=== PATIENT | male | born 1960 | race Caucasian/White ===

== ENCOUNTER 2016-03-30 06:41 | Day surgery (SDC) | payer BC, OTHER ==
[~2016-03-30] VITALS: Ht 185.4 cm; Wt 140.6 kg
[~2016-03-30 06:41] MED LIST: ABILIFY10 MG PO; ABILIFY20 MG PO; BACTRIM; CELEXA40 MG PO; CITALOPRAM HBR40 M1 PO; COLACE100 MG PO; Chronulac,Cephulac,E PO; DETROL LA2 MG PO; DIFLUCAN100 MG PO; FERROUS SULFAT325 MG PO; FOLIC ACID1 MG PO; FUROSEMIDE40 MG PO; HALOPERIDOL2 MG PO; LASIX80 MG PO; LORCET 5-325 M1 EACH PO; MAG-OX400 M1 PO; MULTIVITAMIN1 EAC2 PO; NEURONTIN300 MG PO; OMEPRAZOLE MAGN20 MG PO; OXYCODONE5 MG PO; PREDNISONE5 M2 PO; PROGRAF1 MG PO; PROGRAF5 MG PO; PROPRANOLOL HCL20 MG PO; PROTONIX40 MG PO; SENNA8.6 M1 PO; SINEMET 25-1001 EACH PO; SPIRONOLACTONE100 MG PO; SYNTHROID100 MCG PO; VALCYTE450 MG PO; ZESTRIL10 MG PO; [UNRECOGNIZED DRUG - OTHER] PO
== END 2016-03-30 09:03 | disposition home or self-care (01) ==
LOC: PAIN 06:41 → SDC 07:30 → PAIN 07:30
PROC: 015B3ZZ Destruction of Lumbar Nerve, Percutaneous Approach (ICD-10-PCS; principal; 2016-03-30)
DX: M47.816 Spondylosis without myelopathy or radiculopathy, lumbar region (principal); M54.5 Low back pain; F41.9 Anxiety disorder, unspecified; M48.06 Spinal stenosis, lumbar region; Z94.4 Liver transplant status; Z92.25 Personal history of immunosuppression therapy; G20 Parkinson's disease; F31.9 Bipolar disorder, unspecified; G47.00 Insomnia, unspecified; N39.41 Urge incontinence; I10 Essential (primary) hypertension; E66.01 Morbid (severe) obesity due to excess calories; Z68.41 Body mass index [BMI] 40.0-44.9, adult; K21.9 Gastro-esophageal reflux disease without esophagitis; E78.2 Mixed hyperlipidemia; G47.33 Obstructive sleep apnea (adult) (pediatric); E03.9 Hypothyroidism, unspecified; F10.21 Alcohol dependence, in remission
CPT/HCPCS: J1030; J2250; J3010; S0020

== ENCOUNTER 2016-04-06 07:52 | Day surgery (SDC) | payer BC, OTHER ==
[~2016-04-06] VITALS: Ht 185.4 cm; Wt 140.6 kg
== END 2016-04-06 09:47 | disposition home or self-care (01) ==
LOC: PAIN 07:52 → SDC 08:30 → PAIN 08:30
PROC: 015B3ZZ Destruction of Lumbar Nerve, Percutaneous Approach (ICD-10-PCS; principal; 2016-04-06)
DX: M47.896 Other spondylosis, lumbar region (principal); M48.06 Spinal stenosis, lumbar region; I10 Essential (primary) hypertension; F41.1 Generalized anxiety disorder; M10.9 Gout, unspecified; G47.33 Obstructive sleep apnea (adult) (pediatric); Z94.4 Liver transplant status; G20 Parkinson's disease; E03.9 Hypothyroidism, unspecified
CPT/HCPCS: J1030; J2250; J3010; S0020

== ENCOUNTER 2016-12-14 08:49 | Day surgery (SDC) | payer BC, OTHER ==
[~2016-12-14] VITALS: Ht 177.8 cm; Wt 135.1 kg
[~2016-12-14 08:49] MED LIST changes: +OXYCODONE HCL10 MG PO
== END 2016-12-14 10:15 | disposition home or self-care (01) ==
LOC: PAIN 08:49 → SDC 09:45 → PAIN 09:45
PROC: 3E0S33Z Introduction of Anti-inflammatory into Epidural Space, Percutaneous Approach (ICD-10-PCS; principal; 2016-12-14)
DX: M47.26 Other spondylosis with radiculopathy, lumbar region (principal); M48.061 Spinal stenosis, lumbar region without neurogenic claudication; M51.16 Intervertebral disc disorders with radiculopathy, lumbar region; Z94.4 Liver transplant status; E66.01 Morbid (severe) obesity due to excess calories; Z68.41 Body mass index [BMI] 40.0-44.9, adult; I10 Essential (primary) hypertension; E78.1 Pure hyperglyceridemia; E78.2 Mixed hyperlipidemia; K21.9 Gastro-esophageal reflux disease without esophagitis; G47.33 Obstructive sleep apnea (adult) (pediatric); E03.9 Hypothyroidism, unspecified
CPT/HCPCS: 93005; J1030; J1100; J2250; J3010

== ENCOUNTER 2017-01-18 13:26 | Day surgery (SDC) | payer BC, OTHER ==
[~2017-01-18] VITALS: Ht 177.8 cm; Wt 129.3 kg
[~2017-01-18 13:26] MED LIST changes: -ABILIFY10 MG PO; +ASCORBIC ACID500 M3 PO; +COLCRYS0.6 MG PO; +LIPITOR80 MG PO; +SYMMETREL100 M1 PO; +VIAGRA50 MG PO; +ZYLOPRIM300 MG PO
== END 2017-01-18 15:20 | disposition home or self-care (01) ==
LOC: PAIN 13:26 → SDC 14:00 → PAIN 15:20
DX: M47.26 Other spondylosis with radiculopathy, lumbar region (principal); M54.5 Low back pain; G89.29 Other chronic pain; M48.061 Spinal stenosis, lumbar region without neurogenic claudication; M79.1 Myalgia; E66.01 Morbid (severe) obesity due to excess calories; Z68.41 Body mass index [BMI] 40.0-44.9, adult; I10 Essential (primary) hypertension; E78.1 Pure hyperglyceridemia; K21.9 Gastro-esophageal reflux disease without esophagitis; J45.909 Unspecified asthma, uncomplicated; G47.33 Obstructive sleep apnea (adult) (pediatric); G20 Parkinson's disease; E03.9 Hypothyroidism, unspecified; Z94.4 Liver transplant status; F10.21 Alcohol dependence, in remission; Z79.891 Long term (current) use of opiate analgesic
CPT/HCPCS: J1100; J2250; J3010

== ENCOUNTER 2017-03-01 13:25 | Day surgery (SDC) | payer BC, OTHER ==
[~2017-03-01] VITALS: Ht 177.8 cm; Wt 129.3 kg
== END 2017-03-01 14:58 | disposition home or self-care (01) ==
LOC: PAIN 13:25 → SDC 14:15 → PAIN 14:58
DX: M47.26 Other spondylosis with radiculopathy, lumbar region (principal); M48.061 Spinal stenosis, lumbar region without neurogenic claudication; I10 Essential (primary) hypertension; E66.01 Morbid (severe) obesity due to excess calories; Z68.41 Body mass index [BMI] 40.0-44.9, adult; K21.9 Gastro-esophageal reflux disease without esophagitis; G47.33 Obstructive sleep apnea (adult) (pediatric); G20 Parkinson's disease; E03.9 Hypothyroidism, unspecified; E78.1 Pure hyperglyceridemia; Z79.891 Long term (current) use of opiate analgesic
CPT/HCPCS: J1100; J2250; J3010

== ENCOUNTER 2017-03-14 09:58 | Day surgery (SDC) | payer BC, OTHER ==
[~2017-03-14] VITALS: Ht 177.8 cm; Wt 129.3 kg
[2017-03-14 10:24] VITALS: BP 139/84
[2017-03-14 10:25] VITALS: BP 139/84
[2017-03-14] MEDS ORDERED: MULTI VITAMIN1 EACH PO (10:48)
[2017-03-14 20:00] VITALS: BP 128/60
[2017-03-14 23:50] VITALS: BP 101/59
[2017-03-15 04:00] VITALS: BP 120/88
[2017-03-15 07:53] VITALS: BP 102/56
[2017-03-15 15:44] VITALS: BP 100/58
[2017-03-15] MEDS ORDERED: TIZANIDINE HCL4 MG PO (17:25)
[2017-03-15] MEDS ORDERED: OXYCODONE HCL10 MG PO (17:25)
[2017-03-15] MEDS ORDERED: NEURONTIN300 MG PO (17:25)
== END 2017-03-15 18:41 | disposition home or self-care (01) ==
LOC: SDC 09:58 → ENRESERV 17:59 → 2SOUTH 18:15 → 3EAST 18:15 → ENRESERV 18:44 → 3EAST 19:56
PROVIDERS: Neurological Surgery
PROC: 00QT0ZZ Repair Spinal Meninges, Open Approach (ICD-10-PCS; principal; 2017-03-14)
PROC: 01NB0ZZ Release Lumbar Nerve, Open Approach (ICD-10-PCS; principal; 2017-03-14)
DX: M48.062 Spinal stenosis, lumbar region with neurogenic claudication (principal); G97.41 Accidental puncture or laceration of dura during a procedure; G89.29 Other chronic pain; G20 Parkinson's disease; Z94.4 Liver transplant status; Z92.25 Personal history of immunosuppression therapy; E66.01 Morbid (severe) obesity due to excess calories; Z68.41 Body mass index [BMI] 40.0-44.9, adult; I12.0 Hypertensive chronic kidney disease with stage 5 chronic kidney disease or end stage renal disease; N18.6 End stage renal disease; K74.60 Unspecified cirrhosis of liver; K21.9 Gastro-esophageal reflux disease without esophagitis; D69.6 Thrombocytopenia, unspecified; F10.21 Alcohol dependence, in remission; D50.9 Iron deficiency anemia, unspecified; M10.9 Gout, unspecified; Z88.8 Allergy status to other drugs, medicaments and biological substances
CPT/HCPCS: 72020; 76000; 82948; 94799; G0378; G9033; J0330; J0690; J1100; J1170; J1580; J2250; J2405; J2710; J2930; J3010; J3370; J3480; J7507; S0020

== ENCOUNTER 2017-05-16 08:39 | Emergency (ER) | payer BC, OTHER ==
[~2017-05-16] VITALS: Ht 185.4 cm; Wt 134.1 kg
[~2017-05-16 08:39] MED LIST changes: +MULTI VITAMIN1 EACH PO; +TIZANIDINE HCL4 MG PO
[2017-05-16 09:17] LABS: BASOPHIL (%) 0.3 % (0-1); EOSINOPHIL (%) 3.4 % (0-5); EOSINOPHIL COUNT 0.3 K/uL (0-0.3); HEMATOCRIT 44.2 % (38.0-50.0); HEMOGLOBIN 15.4 G/DL (12.5-16.6); IMMATURE GRANULOCYTE (%) 0.5 % (0.0-0.7); LYMPHOCYTE (%) 19.3 % (15-42); LYMPHOCYTE COUNT 1.4 K/uL (1.0-2.8); MCH 32.6 PG (29.0-34.0); MCHC 34.8 G/DL (30.0-36.0); MCV 93.6 FL (86-99); MONOCYTE (%) 6.1 % (3-12); MONOCYTE COUNT 0.5 K/uL (0-0.8); NEUTROPHIL (%) 70.4 % (45-76); NEUTROPHIL COUNT 5.2 K/uL (1.8-6.4); PLATELET COUNT 125 K/uL (156-360); RBC DIS.WIDTH-SD 48.2 % (39-53); RED BLOOD COUNT 4.72 M/uL (4.00-5.50); WHITE BLOOD COUNT 7.4 K/uL (4.1-10.2)
[2017-05-16 09:23] LABS: INTER. NORMALIZED RATIO 1.1
[2017-05-16 09:25] LABS: PTT 26.5 SEC (25-37)
[2017-05-16 09:29] LABS: CHLORIDE 103 mEq/L (99-109); POTASSIUM 4.5 mEq/L (3.7-5.4); SODIUM 136 mEq/L (136-147)
[2017-05-16 09:31] LABS: GLUCOSE 114 mg/dL (70-99)
[2017-05-16 09:35] LABS: GFR ESTIMATE (CALCULATED) > 59 mL/min/ (58.99-99999)
[2017-05-16 09:36] LABS: UREA NITROGEN (BUN) 12 mg/dL (9-23)
[2017-05-16 09:38] LABS: TROP-I INTERPRETATION NEGATIVE; TROPONIN-I < 0.01 ng/mL (0.0-0.30)
[2017-05-16 12:05] LABS: TROP-I INTERPRETATION NEGATIVE; TROPONIN-I < 0.01 ng/mL (0.0-0.30)
[2017-05-16] MEDS ORDERED: CEFTIN500 MG PO (12:26)
[2017-05-16 13:10] VITALS: BP 124/84
== END 2017-05-16 13:15 | disposition home or self-care (01) ==
LOC: EME 08:39
PROVIDERS: Emergency Medicine
DX: J18.9 Pneumonia, unspecified organism (principal); R07.89 Other chest pain; I45.10 Unspecified right bundle-branch block; I10 Essential (primary) hypertension; G20 Parkinson's disease; Z94.4 Liver transplant status
CPT/HCPCS: 71045; 80048; 84484; 85025; 85610; 85730; 93005

== ENCOUNTER 2017-08-16 18:09 | Observation (INO) | payer BC, OTHER ==
[~2017-08-16] VITALS: Ht 185.4 cm; Wt 135.2 kg
[~2017-08-16 18:09] MED LIST changes: +ABILIFY15 MG PO; +CEFTIN500 MG PO; -SYNTHROID100 MCG PO; +SYNTHROID112 MCG PO
[2017-08-16 19:03] LABS: HEMATOCRIT 43.1 % (38.0-50.0); HEMOGLOBIN 15.3 G/DL (12.5-16.6); MCH 32.9 PG (29.0-34.0); MCHC 35.5 G/DL (30.0-36.0); MCV 92.7 FL (86-99); PLATELET COUNT 92 K/uL (156-360); RBC DIS.WIDTH-CV 14.2 % (11.8-14.6); RBC DIS.WIDTH-SD 47.4 % (39-53); RED BLOOD COUNT 4.65 M/uL (4.00-5.50)
[2017-08-16 19:21] LABS: ALBUMIN 4.1 g/dL (3.2-4.8); CHLORIDE 102 mEq/L (99-109); SODIUM 137 mEq/L (136-147)
[2017-08-16 19:23] LABS: GLUCOSE 132 mg/dL (70-99); TOTAL PROTEIN 6.6 g/dL (6.4-8.3)
[2017-08-16 19:25] LABS: TOTAL BILIRUBIN 1.5 mg/dL (0.0-1.0)
[2017-08-16 19:27] LABS: ALKALINE PHOSPHATASE 179 IU/L (3-129); GFR ESTIMATE (CALCULATED) > 59 mL/min/ (58.99-99999)
[2017-08-16 19:28] LABS: AST (GOT) 57 IU/L (2-34); TROP-I INTERPRETATION NEGATIVE; TROPONIN-I < 0.01 ng/mL (0.0-0.30); UREA NITROGEN (BUN) 11 mg/dL (9-23)
[2017-08-16 19:30] LABS: ALT (GPT) 9 IU/L (3-49)
[2017-08-16 19:50] LABS: SITE LR
[2017-08-16 19:51] LABS: BASE EXCESS -0.6 mEq/L (-3 to +3); BICARBONATE 24.9 mEq/L (22-26); COMMENTS - BLOOD GASES A+C+; DEVICE NC; METHEMOGLOBIN 1.3 % (0-1.5); O2 FLOW 3 L/MIN; PCO2 43 mm Hg (35-45); PO2 83 mm Hg (80-100); pH 7.37 (7.35-7.45)
[2017-08-16] MEDS ORDERED: NIZORAL 2% CREA15 GM TP (23:02)
[2017-08-16] MEDS ORDERED: CRESTOR40 MG PO (23:02)
[2017-08-16] MEDS ORDERED: ALLEGRA ALLERG180 MG PO (23:02)
[2017-08-16] MEDS ORDERED: MYSOLINE50 MG PO (23:02)
[2017-08-16] MEDS ORDERED: VENTOLIN HFA18 GM IH (23:03)
[2017-08-16] MEDS ORDERED: OMEPRAZOLE20 MG PO (23:03)
[2017-08-16] MEDS ORDERED: FLONASE16 G1 BOTH NARES (23:03)
[2017-08-16] MEDS ORDERED: HALCION0.25 MG PO (23:03)
[2017-08-16] MEDS ORDERED: ADULT ASPIRIN R81 MG PO (23:05)
[2017-08-17 01:41] VITALS: BP 121/61
[2017-08-17 01:52] LABS: HEMATOCRIT 41.7 % (38.0-50.0); HEMOGLOBIN 14.8 G/DL (12.5-16.6); MCH 33.3 PG (29.0-34.0); MCHC 35.5 G/DL (30.0-36.0); MCV 93.7 FL (86-99); PLATELET COUNT 90 K/uL (156-360); RBC DIS.WIDTH-CV 14.3 % (11.8-14.6); RBC DIS.WIDTH-SD 48.4 % (39-53); RED BLOOD COUNT 4.45 M/uL (4.00-5.50); WHITE BLOOD COUNT 7.2 K/uL (4.1-10.2)
[2017-08-17 02:05] LABS: ALBUMIN 3.9 g/dL (3.2-4.8); CHLORIDE 101 mEq/L (99-109); POTASSIUM 4.1 mEq/L (3.7-5.4); SODIUM 136 mEq/L (136-147)
[2017-08-17 02:07] LABS: GLUCOSE 136 mg/dL (70-99); TOTAL PROTEIN 6.1 g/dL (6.4-8.3)
[2017-08-17 02:09] LABS: TOTAL BILIRUBIN 1.6 mg/dL (0.0-1.0)
[2017-08-17 02:10] LABS: ALKALINE PHOSPHATASE 159 IU/L (3-129)
[2017-08-17 02:11] LABS: CREATININE 1.1 mg/dL (0.6-1.3); GFR ESTIMATE (CALCULATED) > 59 mL/min/ (58.99-99999)
[2017-08-17 02:12] LABS: AST (GOT) 36 IU/L (2-34); TROP-I INTERPRETATION NEGATIVE; TROPONIN-I < 0.01 ng/mL (0.0-0.30); UREA NITROGEN (BUN) 12 mg/dL (9-23)
[2017-08-17 02:16] LABS: ALT (GPT) 36 IU/L (3-49)
[2017-08-17 03:46] VITALS: BP 118/70
[2017-08-17 07:45] VITALS: BP 107/69
[2017-08-17 09:48] LABS: TROP-I INTERPRETATION NEGATIVE; TROPONIN-I < 0.01 ng/mL (0.0-0.30)
[2017-08-17 12:12] VITALS: BP 117/69
[2017-08-17 12:55] LABS: TROP-I INTERPRETATION NEGATIVE; TROPONIN-I < 0.01 ng/mL (0.0-0.30)
[2017-08-17 19:25] VITALS: BP 111/68
[2017-08-17 23:08] VITALS: BP 110/65
[2017-08-18 03:24] VITALS: BP 114/66
== END 2017-08-18 11:43 | disposition home or self-care (01) ==
LOC: EME 18:09 → EDOF 23:18 → 4SOUTH 23:18 → EDOF 23:18 → ENRESERV 23:20 → 4SOUTH 08-17 01:24 → ENPENDDIS 08-18 08:20 → 4SOUTH 08-18 11:43
PROVIDERS: Emergency Medicine; Family Medicine; Internal Medicine
DX: R07.89 Other chest pain (principal); M54.2 Cervicalgia; R20.0 Anesthesia of skin; Z94.4 Liver transplant status; I31.3 Pericardial effusion (noninflammatory); Z92.25 Personal history of immunosuppression therapy; M32.9 Systemic lupus erythematosus, unspecified; M25.78 Osteophyte, vertebrae; D69.6 Thrombocytopenia, unspecified; E66.9 Obesity, unspecified; E78.5 Hyperlipidemia, unspecified; E03.9 Hypothyroidism, unspecified; I10 Essential (primary) hypertension; K21.9 Gastro-esophageal reflux disease without esophagitis; F32.9 Major depressive disorder, single episode, unspecified; G20 Parkinson's disease; J45.909 Unspecified asthma, uncomplicated; F10.11 Alcohol abuse, in remission; Z87.19 Personal history of other diseases of the digestive system; Z79.82 Long term (current) use of aspirin
CPT/HCPCS: 36600; 71046; 71275; 72125; 72141; 80053; 80197 90; 82803; 84484; 85027; 93005; 93306; 99202; 99281; 99285; G0378; G9033; J1885; J7030; J7507; S0028

== ENCOUNTER 2017-10-18 07:23 | Day surgery (SDC) | payer BC, OTHER ==
[~2017-10-18] VITALS: Ht 185.4 cm; Wt 125.6 kg
[~2017-10-18 07:23] MED LIST changes: +ADULT ASPIRIN R81 MG PO; +ALLEGRA ALLERG180 MG PO; +CRESTOR40 MG PO; +FLONASE16 G1 BOTH NARES; +HALCION0.25 MG PO; +MYSOLINE50 MG PO; +NIZORAL 2% CREA15 GM TP; +OMEPRAZOLE20 MG PO; +VENTOLIN HFA18 GM IH
== END 2017-10-18 09:20 | disposition home or self-care (01) ==
LOC: PAIN 07:23 → SDC 08:00 → PAIN 09:20
DX: M50.13 Cervical disc disorder with radiculopathy, cervicothoracic region (principal); M47.816 Spondylosis without myelopathy or radiculopathy, lumbar region; M79.1 Myalgia; I10 Essential (primary) hypertension; K21.9 Gastro-esophageal reflux disease without esophagitis; E78.1 Pure hyperglyceridemia; G47.33 Obstructive sleep apnea (adult) (pediatric); G20 Parkinson's disease; E03.9 Hypothyroidism, unspecified; F10.21 Alcohol dependence, in remission; E66.01 Morbid (severe) obesity due to excess calories; Z68.39 Body mass index [BMI] 39.0-39.9, adult; Z94.4 Liver transplant status
CPT/HCPCS: J1100; J2250; J3010